=== PATIENT | female | born 1975 | race Caucasian/White ===

== ENCOUNTER 2016-08-04 18:59 | Emergency (ER) | payer OTHER ==
--- NOTE | 2016-08-04 20:37 | ED ORDER SUMMARY ---
..... Patient: DAVE BANUELOS OrderSheet [facility] VisitID: [id number] [address] [place] [address] 41y, F Registration Date/Time: 08/04/2016 ORDER SHEET Weight: 120.2 kg Allergies: Aspirin, NSAIDs, Ibuprofen GENERAL ORDERS: Chest 2V Urgent (19:28 08/04/2016 EKoroleva P.A.-C) (19:31 TBowen R.N.) Hand 3 or 4V Right Urgent (19:28 08/04/2016 EKoroleva P.A.-C) (19:31 TBowen R.N.) Splint (UE) (Right) (prince wrap to hand) (19:58 08/04/2016 EKoroleva P.A.-C) (20:30 CHategekimana) Vitals (20:25 08/04/2016 EKoroleva P.A.-C) (20:41 CHategekimana) MEDICATION ORDERS: DuoNeb Neb Tx 1 unit dose (NOW) (19:28 08/04/2016 EKoroleva P.A.-C) (19:58 TBowen R.N.) IV FLUIDS: ORDER SHEET NOTES: [Electronically signed by Candy Kebede R.N. (20:46 08/04/2016)] [Electronically signed by eJn Gunn P.A.-C (22:15 08/04/2016)] [Electronically locked/signed by Candy Kebede R.N. (20:46 08/04/2016)]
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
--- NOTE | 2016-08-04 20:37 | ED ORDER SUMMARY ---
..... Patient: DAVE BANUELOS OrderSheet [facility] VisitID: [id number] [address] [place] [address] 41y, F Registration Date/Time: 08/04/2016 ORDER SHEET Weight: 120.2 kg Allergies: Aspirin, NSAIDs, Ibuprofen GENERAL ORDERS: Chest 2V Urgent (19:28 08/04/2016 EKoroleva P.A.-C) (19:31 TBowen R.N.) Hand 3 or 4V Right Urgent (19:28 08/04/2016 EKoroleva P.A.-C) (19:31 TBowen R.N.) Splint (UE) (Right) (prince wrap to hand) (19:58 08/04/2016 EKoroleva P.A.-C) (20:30 CHategekimana) Vitals (20:25 08/04/2016 EKoroleva P.A.-C) (20:41 CHategekimana) MEDICATION ORDERS: DuoNeb Neb Tx 1 unit dose (NOW) (19:28 08/04/2016 EKoroleva P.A.-C) (19:58 TBowen R.N.) IV FLUIDS: ORDER SHEET NOTES: [Electronically signed by Candy Kebede R.N. (20:46 08/04/2016)] [Electronically signed by Jen Gunn P.A.-C (22:15 08/04/2016)] [Electronically locked/signed by Candy Kebede R.N. (20:46 08/04/2016)]
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
--- NOTE | 2016-08-04 21:14 | DIAGNOSTIC IMAGING REPORT ---
PROCEDURE: XR CHEST 2 VIEW INDICATION: FEVER TECHNIQUE: Two views. COMPARISON: None. FINDINGS: The cardiomediastinal contour and central vasculature are within normal limits. The lungs are clear without focal consolidation, pleural effusion, or pneumothorax. The visualized osseous structures are intact. Fusion plate in the anterior lower cervical spine. Calcific tendinosis in the left rotator cuff region. IMPRESSION: 1. No acute process in the chest. 2. Left shoulder calcific tendinosis.
--- NOTE | 2016-08-04 21:18 | DIAGNOSTIC IMAGING REPORT ---
PROCEDURE: XR HAND 3 OR 4 VIEWS - RIGHT INDICATION: TRAUMA/INJURY TECHNIQUE: Three views of the right hand. COMPARISON: None. FINDINGS: Normal mineralization. Trace cortical irregularity/periarticular erosive change along the medial aspect of the third distal interphalangeal joint with an adjacent rayray-like calcification. A subtle asymmetric joint space loss at the third DIP joint. Trace calcification at the radial scaphoid articulation. Normal osseous alignment. No radiodense foreign bodies. IMPRESSION: 1. No acute fractures visible. 2. Minimal erosive change and asymmetric joint space loss at the third DIP joint raising possibility of early arthritis or gout. Alternatively, this could be post-traumatic change, less likely. Correlate clinically.
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
--- NOTE | 2016-08-04 22:15 | ED MED RECONCILIATION SUMMARY ---
Patient: DAVE BANUELOS Medication Reconciliation Report [facility] VisitID: [id number] [address] [place] [address] 41y, F Registration Date/Time: 08/04/2016 Weight: 120.2 kg Height/Length: 63 in. BMI: 47.0 ALLERGIES: Aspirin, Ibuprofen, NSAIDs The patient's Home Medications are listed below: THE FOLLOWING MEDICATIONS NEED TO BE RECONCILED: Baclofen Oral Benadryl Oral Effexor XR Oral Flovent HFA Inhalation Gabapentin Oral Nasonex Nasal Rizatriptan Benzoate Oral Topiramate Oral Ventolin HFA Inhalation ZyrTEC Allergy Oral The source(s) of the original Home Medication information: Not obtained. The following Medications were given to the patient in the Emergency Department: Duoneb [Neb Tx] Neb TX 1 unit dose, administered: 08/04/2016 7:58:00 PM The following Medications were prescribed to the patient: Acetaminophen (available over the counter): take according to label instructions. -- Jen Gunn P.A.-C
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
--- NOTE | 2016-08-04 22:15 | ED MAR SUMMARY ---
..... Medication Administration Record [facility] [address] [place] [address] Patient: DAVE BANUELOS Visit ID: [id number] 41y, F Weight: 120.2 kg Height/Length: 63 in BMI: 47 ALLERGIES: Ibuprofen, NSAIDs, Aspirin Given 19:58 08/04/2016 Meagan Melvin, Stop 20:19 08/04/2016 Meagan Melvin Medication Administered: DUONEB [NEB TX] (IPRATROPIUM-ALBUTEROL), Dose: 1 unit dose Neb TX. Medication Ordered: DuoNeb Neb Tx 1 unit dose (NOW).
--- NOTE | 2016-08-04 22:15 | ED MED RECONCILIATION SUMMARY ---
Patient: DAVE BANUELOS Medication Reconciliation Report [facility] VisitID: [id number] [address] [place] [address] 41y, F Registration Date/Time: 08/04/2016 Weight: 120.2 kg Height/Length: 63 in. BMI: 47.0 ALLERGIES: Aspirin, Ibuprofen, NSAIDs The patient's Home Medications are listed below: THE FOLLOWING MEDICATIONS NEED TO BE RECONCILED: Baclofen Oral Benadryl Oral Effexor XR Oral Flovent HFA Inhalation Gabapentin Oral Nasonex Nasal Rizatriptan Benzoate Oral Topiramate Oral Ventolin HFA Inhalation ZyrTEC Allergy Oral The source(s) of the original Home Medication information: Not obtained. The following Medications were given to the patient in the Emergency Department: Duoneb [Neb Tx] Neb TX 1 unit dose, administered: 08/04/2016 7:58:00 PM The following Medications were prescribed to the patient: Acetaminophen (available over the counter): take according to label instructions. -- Jen Gunn P.A.-C
--- NOTE | 2016-08-04 22:15 | ED MAR SUMMARY ---
..... Medication Administration Record [facility] [address] [place] [address] Patient: DAVE BANUELOS Visit ID: [id number] 41y, F Weight: 120.2 kg Height/Length: 63 in BMI: 47 ALLERGIES: Ibuprofen, NSAIDs, Aspirin Given 19:58 08/04/2016 Meagan Melvin, Stop 20:19 08/04/2016 Meagan Melvin Medication Administered: DUONEB [NEB TX] (IPRATROPIUM-ALBUTEROL), Dose: 1 unit dose Neb TX. Medication Ordered: DuoNeb Neb Tx 1 unit dose (NOW).
== END 2016-08-04 20:40 | disposition home or self-care (01) ==
LOC: ED SRH 18:59
DX: S60.221A Contusion of right hand, initial encounter (principal); Y04.8XXA Assault by other bodily force, initial encounter; Y93.89 Activity, other specified; Y92.9 Unspecified place or not applicable; Y99.9 Unspecified external cause status; J45.31 Mild persistent asthma with (acute) exacerbation; E11.9 Type 2 diabetes mellitus without complications; Z88.8 Allergy status to other drugs, medicaments and biological substances

== ENCOUNTER 2016-08-07 18:50 | Emergency (ER) | payer OTHER ==
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
--- NOTE | 2016-08-07 22:28 | ED CLINICAL REPORT ---
Clinical Report - Physicians/Mid Levels [facility] [address] [place] [address] 08/07/2016 18:51 Patient: DAVE BANUELOS Time Seen: 1926. Arrived- By private vehicle. Historian- patient. HISTORY OF PRESENT ILLNESS Chief Complaint: CHEST PAIN. At its maximum, severity described as moderate. When seen in the E.D., severity described as moderate. Modifying factors- worsened by cough. Not relieved by anything. 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 It was abrupt in onset and has been intermittent but is not gone now. Onset during rest. It is described as sharp and it is described as located in the left chest area. No radiation. No nausea, vomiting, difficulty breathing or diaphoresis. (no recent surgery, leg swelling, coughing up blood, recent trauma). No additional chest pain. Similar symptoms previously: None. Recent medical care: The patient was seen recently in a clinic (reports cough and negative chest xray at an outpatient clinic.). REVIEW OF SYSTEMS The patient has had fever (now resolved). She has had chills. No pedal edema, calf pain or skin rash. All systems otherwise negative, except as recorded above. PAST HISTORY See nurses notes. Denies the following risk factors for DVT/PE - history of DVT and pulmonary embolism, recent surgery, recent VT and congestive heart failure. Denies the following risk factors for DVT/PE - cancer, clotting disorder, estrogens, immobility and advanced in age. Denies the following risk factors for DVT/PE - vena cava filter. SOCIAL HISTORY Smoker- current status unknown. No alcohol use or drug use. No recent travel. Is a local resident. FAMILY HISTORY Negative. ADDITIONAL NOTES The nursing notes have been reviewed. PHYSICAL EXAM Vital Signs: 08/07/2016 19:00 BP: 152/82. HR: 78. RR: 18. O2 saturation: 98%. Temp: 98.1 F. Pain level now: 7/10. Blood pressure normal. Oxygen saturation normal. Appearance: Alert. Oriented X3. No acute distress. Eyes: Pupils equal, round and reactive to light. Eyes normal inspection. ENT: Ears normal. Nose normal. Pharynx normal. Neck: Normal inspection. Neck supple. CVS: Normal heart rate and rhythm. Heart sounds normal. Pulses normal. Respiratory: No respiratory distress. Expiratory mild bilateral wheezes present. Breath sounds normal. Chest nontender. Abdomen: Soft and nontender. Bowel sounds normal. No mass. Skin: Skin warm and dry. Normal skin color. No rash. Normal skin turgor. Extremities: Extremities exhibit normal ROM. No lower extremity edema. Neuro: Oriented X 3. No motor deficit. No sensory deficit. LABS, X-RAYS, AND EKG EKG: No acute process. No acute ischemia. Normal EKG. Normal sinus rhythm. Rate: 66. Normal P waves. Normal MAKAYLA. Normal QRS complex. Normal axis. Normal ST and T waves, QT and QTc. The study has been interpreted contemporaneously. The study has been independently viewed by me. The EKG appears to be a good tracing. I agree with and confirm the computer reading of the EKG. Chest X-ray: No acute disease. Normal lung markings present. Laboratory Tests: UA-Culture if indicated: (ROHAN: 08/07/2016 20:45) ( MsgRcvd 08/07/2016 21:20) Final results Test Result Flag Units (Reference) URINE COLOR YELLOW URINE APPEARANCE CLOUDY URINE GLUCOSE NEGATIVE (NEGATIVE) URINE BILIRUBIN NEGATIVE (NEGATIVE) URINE KETONE NEGATIVE (NEGATIVE) URINE SPECIFIC GRAVITY 1.020 (1.010-1.030) URINE PH 8.0 (5.0-8.0) URINE PROTEIN NEGATIVE (NEGATIVE) URINE UROBILINOGEN 1.0 EU/dL (0.2-1.0) URINE NITRITE NEGATIVE (NEGATIVE) URINE BLOOD NEGATIVE (NEGATIVE) URINE LEUK ESTERASE NEGATIVE (NEGATIVE) URINE RBC NONE SEEN rbc/hpf (0-1) URINE WBC NONE SEEN wbc/hpf (0-1) URINE EPITHELIAL CELLS 0-1 EPI/hpf (0-5) 4+ AMORPHOUS URINE BACTERIA FEW (1+) (NONE SEEN) URINE COMMENT CULT NOT INDICATED URINE CULTURES ARE SET-UP BASED ON THE FOLLOWING CRITERIA:POSITIVE NITRITEPOSITIVE LEUKOCYTE ESTERASEGREATER THAN 10 WHITE BLOOD CELLSMODERATE (2+) OR GREATER BACTERIA Urine: (ROHAN: 08/07/2016 20:45) ( [facility] 08/07/2016 21:20) Final results Test Result Flag Units (Reference) URINE NEGATIVE CBC w Diff: (ROHAN: 08/07/2016 19:05) ( [facility] 08/07/2016 19:30) Final results Test Result Flag Units (Reference) WHITE BLOOD COUNT 6.8 K/uL (4.5-11.5) RED BLOOD COUNT 4.42 M/uL (4.00-5.20) HEMOGLOBIN 14.0 gm/dL (12.0-16.0) HEMATOCRIT 41.9 % (36.0-46.0) MEAN CELL VOLUME 95 fL (80-100) MEAN CORPUSCULAR HGB 32 pg (26-34) MEAN CORPUSCULAR HGB CONC 33 g/dL (31-37) RED CELL DISTRIBUTION WIDTH 13.4 % (11.6-14.8) PLATELET COUNT 250 K/uL (150-400) NEUTROPHIL % 51.6 % (50-75) LYMPH % 35.8 % (25-40) MONO % 7.3 % (3-14) EOSINOPHIL % 4.7 H % (0-4) BASOPHIL % 0.6 % (0-2) Troponin-I: (ROHAN: 08/07/2016 21:20) ( [facility] 08/07/2016 21:47) Final results Test Result Flag Units (Reference) TROPONIN I <0.05 L ng/mL (0.00-1.5) TROPONIN REFERENCE RANGE:<0.1 NEGATIVE0.1-1.5 INDETERMINANT>1.5 POSITIVE Urine Drug Screen: (ROHAN: 08/07/2016 20:45) ( [facility] 08/07/2016 21:24) Final results Test Result Flag Units (Reference) AMPHETAMINE/METHAMPHETAMINE NEGATIVE (NEGATIVE) BARBITURATE NEGATIVE (NEGATIVE) BENZODIAZEPINE NEGATIVE (NEGATIVE) CANNABINOID NEGATIVE (NEGATIVE) COCAINE NEGATIVE (NEGATIVE) ECSTASY NEGATIVE (NEGATIVE) METHADONE NEGATIVE (NEGATIVE) OPIATE NEGATIVE (NEGATIVE) The urine drug screen is a qualitative screening test fordrug overdose and abuse. All screen results should beconsidered as presumptive.Drugs screened for are as follows:BenzodiazepinesCocaineAmphetamines/MetamphetaminesTHC (Tetrahydrocannabinol)OpiatesBarbituratesEcstasyMethadonePositive results are unconfirmed. For confirmation, notifythe lab for the specimen to be sent to the reference lab.All confirmations must be performed by a differentmethodology.The ingestion of natural herbal and plant productscontaining Ephedra/Ephedra metabolites can produce in urineone or more substances capable of cross reacting withamphetamine/methamphetamine immunoassays. These testsprovide a preliminary result only. A more specificalternative chemical method must be used to obtain aconfirmed analytical result. CHEM 13 PANEL: (ROHAN: 08/07/2016 19:05) ( MsgRcvd 08/07/2016 19:44) Final results Test Result Flag Units (Reference) GLUCOSE 136 H mg/dL (70-110) BUN 13 mg/dL (7-18) CREATININE 0.7 mg/dL (0.6-1.3) Estimated GFR >60 mL/min Estimated GFR- >60 mL/min Note: Persistent reduction over 3 months in eGFR<60 mL/min/1.73 m2 defines CKD. Patients with eGFR values>=60 mL/min/1.73 m2 may also have CKD if evidence ofpersistent proteinuria. Additional information may be foundat www.kidney.org. SODIUM 143 mmol/L (136-145) POTASSIUM 3.9 mmol/L (3.5-5.1) CHLORIDE 109 H mmol/L (98-107) CARBON DIOXIDE 24 mmol/L (21-32) CALCIUM 8.7 mg/dL (8.5-10.1) TOTAL PROTEIN 7.1 g/dL (6.4-8.2) ALBUMIN 3.3 g/dL (3.3-5.0) BILIRUBIN, TOTAL 0.2 mg/dL (0.0-1.0) ALKALINE PHOSPHATASE 63 U/L (46-116) AST (SGOT) 16 U/L (15-37) ALT (SGPT) 19 U/L (12-78) MAGNESIUM 2.1 mg/dL (1.8-2.4) CPK 63 U/L (24-260) TROPONIN I <0.05 ng/mL (0.00-1.5) TROPONIN REFERENCE RANGE:<0.1 NEGATIVE0.1-1.5 INDETERMINANT>1.5 POSITIVE . Pulse Oximetry: 08/07/2016 19:00 O2 saturation: 98%. (FIO2 - room air). Interpretation: normal. PROGRESS AND PROCEDURES Course of Care: I assumed care of this pt from Dr. Jacobson, pending repeat troponin. Her initial troponin was negative, as was the repeat. I felt pt was stable for d/c home. No emergent condition identified. Patient counseled in person regarding the patient's stable condition, test results, diagnosis and need for follow-up. Concerns were addressed. Old medical records reviewed. Disposition: Discharged. Condition: stable. CLINICAL IMPRESSION Chest pain .12 lead EKG performed. No precordial pain. INSTRUCTIONS Warnings: GENERAL WARNINGS: Return or contact your physician immediately if your condition worsens or changes unexpectedly, if not improving as expected, or if other problems arise. Your Current Medications: CONTINUE TAKING THE FOLLOWING MEDICATIONS: Baclofen Oral. Benadryl Oral. Effexor XR Oral. Flovent HFA Inhalation. Gabapentin Oral. Nasonex Nasal. Rizatriptan Benzoate Oral. Topiramate Oral. Ventolin HFA Inhalation. ZyrTEC Allergy Oral. Follow-up: Follow up with your doctor. Call for the next available appointment. Reason for referral: Follow up ER visit. Understanding of the discharge instructions verbalized by patient. (Electronically signed by Noelle Branham MD 08/08/2016 4:18)
--- NOTE | 2016-08-07 22:28 | ED CLINICAL REPORT ---
Clinical Report - Physicians/Mid Levels [facility] [address] [place] [address] 08/07/2016 18:51 Patient: DAVE BANUELOS Time Seen: 1926. Arrived- By private vehicle. Historian- patient. HISTORY OF PRESENT ILLNESS Chief Complaint: CHEST PAIN. At its maximum, severity described as moderate. When seen in the E.D., severity described as moderate. Modifying factors- worsened by cough. Not relieved by anything. 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 It was abrupt in onset and has been intermittent but is not gone now. Onset during rest. It is described as sharp and it is described as located in the left chest area. No radiation. No nausea, vomiting, difficulty breathing or diaphoresis. (no recent surgery, leg swelling, coughing up blood, recent trauma). No additional chest pain. Similar symptoms previously: None. Recent medical care: The patient was seen recently in a clinic (reports cough and negative chest xray at an outpatient clinic.). REVIEW OF SYSTEMS The patient has had fever (now resolved). She has had chills. No pedal edema, calf pain or skin rash. All systems otherwise negative, except as recorded above. PAST HISTORY See nurses notes. Denies the following risk factors for DVT/PE - history of DVT and pulmonary embolism, recent surgery, recent MT and congestive heart failure. Denies the following risk factors for DVT/PE - cancer, clotting disorder, estrogens, immobility and advanced in age. Denies the following risk factors for DVT/PE - vena cava filter. SOCIAL HISTORY Smoker- current status unknown. No alcohol use or drug use. No recent travel. Is a local resident. FAMILY HISTORY Negative. ADDITIONAL NOTES The nursing notes have been reviewed. PHYSICAL EXAM Vital Signs: 08/07/2016 19:00 BP: 152/82. HR: 78. RR: 18. O2 saturation: 98%. Temp: 98.1 F. Pain level now: 7/10. Blood pressure normal. Oxygen saturation normal. Appearance: Alert. Oriented X3. No acute distress. Eyes: Pupils equal, round and reactive to light. Eyes normal inspection. ENT: Ears normal. Nose normal. Pharynx normal. Neck: Normal inspection. Neck supple. CVS: Normal heart rate and rhythm. Heart sounds normal. Pulses normal. Respiratory: No respiratory distress. Expiratory mild bilateral wheezes present. Breath sounds normal. Chest nontender. Abdomen: Soft and nontender. Bowel sounds normal. No mass. Skin: Skin warm and dry. Normal skin color. No rash. Normal skin turgor. Extremities: Extremities exhibit normal ROM. No lower extremity edema. Neuro: Oriented X 3. No motor deficit. No sensory deficit. LABS, X-RAYS, AND EKG EKG: No acute process. No acute ischemia. Normal EKG. Normal sinus rhythm. Rate: 66. Normal P waves. Normal MAKAYLA. Normal QRS complex. Normal axis. Normal ST and T waves, QT and QTc. The study has been interpreted contemporaneously. The study has been independently viewed by me. The EKG appears to be a good tracing. I agree with and confirm the computer reading of the EKG. Chest X-ray: No acute disease. Normal lung markings present. Laboratory Tests: UA-Culture if indicated: (ROHAN: 08/07/2016 20:45) ( MsgRcvd 08/07/2016 21:20) Final results Test Result Flag Units (Reference) URINE COLOR YELLOW URINE APPEARANCE CLOUDY URINE GLUCOSE NEGATIVE (NEGATIVE) URINE BILIRUBIN NEGATIVE (NEGATIVE) URINE KETONE NEGATIVE (NEGATIVE) URINE SPECIFIC GRAVITY 1.020 (1.010-1.030) URINE PH 8.0 (5.0-8.0) URINE PROTEIN NEGATIVE (NEGATIVE) URINE UROBILINOGEN 1.0 EU/dL (0.2-1.0) URINE NITRITE NEGATIVE (NEGATIVE) URINE BLOOD NEGATIVE (NEGATIVE) URINE LEUK ESTERASE NEGATIVE (NEGATIVE) URINE RBC NONE SEEN rbc/hpf (0-1) URINE WBC NONE SEEN wbc/hpf (0-1) URINE EPITHELIAL CELLS 0-1 EPI/hpf (0-5) 4+ AMORPHOUS URINE BACTERIA FEW (1+) (NONE SEEN) URINE COMMENT CULT NOT INDICATED URINE CULTURES ARE SET-UP BASED ON THE FOLLOWING CRITERIA:POSITIVE NITRITEPOSITIVE LEUKOCYTE ESTERASEGREATER THAN 10 WHITE BLOOD CELLSMODERATE (2+) OR GREATER BACTERIA Urine: (ROHAN: 08/07/2016 20:45) ( [facility] 08/07/2016 21:20) Final results Test Result Flag Units (Reference) URINE NEGATIVE CBC w Diff: (ROHAN: 08/07/2016 19:05) ( [facility] 08/07/2016 19:30) Final results Test Result Flag Units (Reference) WHITE BLOOD COUNT 6.8 K/uL (4.5-11.5) RED BLOOD COUNT 4.42 M/uL (4.00-5.20) HEMOGLOBIN 14.0 gm/dL (12.0-16.0) HEMATOCRIT 41.9 % (36.0-46.0) MEAN CELL VOLUME 95 fL (80-100) MEAN CORPUSCULAR HGB 32 pg (26-34) MEAN CORPUSCULAR HGB CONC 33 g/dL (31-37) RED CELL DISTRIBUTION WIDTH 13.4 % (11.6-14.8) PLATELET COUNT 250 K/uL (150-400) NEUTROPHIL % 51.6 % (50-75) LYMPH % 35.8 % (25-40) MONO % 7.3 % (3-14) EOSINOPHIL % 4.7 H % (0-4) BASOPHIL % 0.6 % (0-2) Troponin-I: (ROHAN: 08/07/2016 21:20) ( [facility] 08/07/2016 21:47) Final results Test Result Flag Units (Reference) TROPONIN I <0.05 L ng/mL (0.00-1.5) TROPONIN REFERENCE RANGE:<0.1 NEGATIVE0.1-1.5 INDETERMINANT>1.5 POSITIVE Urine Drug Screen: (ROHAN: 08/07/2016 20:45) ( [facility] 08/07/2016 21:24) Final results Test Result Flag Units (Reference) AMPHETAMINE/METHAMPHETAMINE NEGATIVE (NEGATIVE) BARBITURATE NEGATIVE (NEGATIVE) BENZODIAZEPINE NEGATIVE (NEGATIVE) CANNABINOID NEGATIVE (NEGATIVE) COCAINE NEGATIVE (NEGATIVE) ECSTASY NEGATIVE (NEGATIVE) METHADONE NEGATIVE (NEGATIVE) OPIATE NEGATIVE (NEGATIVE) The urine drug screen is a qualitative screening test fordrug overdose and abuse. All screen results should beconsidered as presumptive.Drugs screened for are as follows:BenzodiazepinesCocaineAmphetamines/MetamphetaminesTHC (Tetrahydrocannabinol)OpiatesBarbituratesEcstasyMethadonePositive results are unconfirmed. For confirmation, notifythe lab for the specimen to be sent to the reference lab.All confirmations must be performed by a differentmethodology.The ingestion of natural herbal and plant productscontaining Ephedra/Ephedra metabolites can produce in urineone or more substances capable of cross reacting withamphetamine/methamphetamine immunoassays. These testsprovide a preliminary result only. A more specificalternative chemical method must be used to obtain aconfirmed analytical result. CHEM 13 PANEL: (ROHAN: 08/07/2016 19:05) ( MsgRcvd 08/07/2016 19:44) Final results Test Result Flag Units (Reference) GLUCOSE 136 H mg/dL (70-110) BUN 13 mg/dL (7-18) CREATININE 0.7 mg/dL (0.6-1.3) Estimated GFR >60 mL/min Estimated GFR- >60 mL/min Note: Persistent reduction over 3 months in eGFR<60 mL/min/1.73 m2 defines CKD. Patients with eGFR values>=60 mL/min/1.73 m2 may also have CKD if evidence ofpersistent proteinuria. Additional information may be foundat www.kidney.org. SODIUM 143 mmol/L (136-145) POTASSIUM 3.9 mmol/L (3.5-5.1) CHLORIDE 109 H mmol/L (98-107) CARBON DIOXIDE 24 mmol/L (21-32) CALCIUM 8.7 mg/dL (8.5-10.1) TOTAL PROTEIN 7.1 g/dL (6.4-8.2) ALBUMIN 3.3 g/dL (3.3-5.0) BILIRUBIN, TOTAL 0.2 mg/dL (0.0-1.0) ALKALINE PHOSPHATASE 63 U/L (46-116) AST (SGOT) 16 U/L (15-37) ALT (SGPT) 19 U/L (12-78) MAGNESIUM 2.1 mg/dL (1.8-2.4) CPK 63 U/L (24-260) TROPONIN I <0.05 ng/mL (0.00-1.5) TROPONIN REFERENCE RANGE:<0.1 NEGATIVE0.1-1.5 INDETERMINANT>1.5 POSITIVE . Pulse Oximetry: 08/07/2016 19:00 O2 saturation: 98%. (FIO2 - room air). Interpretation: normal. PROGRESS AND PROCEDURES Course of Care: I assumed care of this pt from Dr. Jacobson, pending repeat troponin. Her initial troponin was negative, as was the repeat. I felt pt was stable for d/c home. No emergent condition identified. Patient counseled in person regarding the patient's stable condition, test results, diagnosis and need for follow-up. Concerns were addressed. Old medical records reviewed. Disposition: Discharged. Condition: stable. CLINICAL IMPRESSION Chest pain .12 lead EKG performed. No precordial pain. INSTRUCTIONS Warnings: GENERAL WARNINGS: Return or contact your physician immediately if your condition worsens or changes unexpectedly, if not improving as expected, or if other problems arise. Your Current Medications: CONTINUE TAKING THE FOLLOWING MEDICATIONS: Baclofen Oral. Benadryl Oral. Effexor XR Oral. Flovent HFA Inhalation. Gabapentin Oral. Nasonex Nasal. Rizatriptan Benzoate Oral. Topiramate Oral. Ventolin HFA Inhalation. ZyrTEC Allergy Oral. Follow-up: Follow up with your doctor. Call for the next available appointment. Reason for referral: Follow up ER visit. Understanding of the discharge instructions verbalized by patient. (Electronically signed by Noelle Branham MD 08/08/2016 4:18)
--- NOTE | 2016-08-07 22:28 | ED ORDER SUMMARY ---
..... 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 verbal order read back to Andrew Yee) (19:14 DDavis R.N.) Pulse oximeter (19:11 08/07/2016 Hue R.N. verbal order read back to Andrew Yee) (19:14 DDavis R.N.) EKG - ER Stat (19:08/07/2016 Hue Collins.N. verbal order read back to Andrew Yee) (Ack 19:13 SBaldwin) (19:13 SBaldwin) Cardiac Panel Stat (19:18 08/07/2016 DDavis R.N. per protocol) (19:18 DDavis R.N.) Chest 2V Urgent (20:25 08/07/2016 Andrew Yee) (Ack 20:27 SBaldwin) (20:38 SBaldwin) UA-Culture if indicated Urgent (20:25 08/07/2016 Andrew Yee) (Ack 20:27 SBaldwin) (20:53 DDavis R.N.) Urine Drug Screen Urgent (20:25 08/07/2016 Andrew Yee) (Ack 20:27 SBaldwin) (20:53 DDavis R.N.) Urine Urgent (20:25 08/07/2016 Andrew Yee) (Ack 20:27 SBaldwin) (20:53 DDavis R.N.) Troponin-I (redraw 2 hours after first trop drawn) Urgent (20:33 08/07/2016 Andrew Yee) (Ack 20:36 SBgloria) (22:47 DDavis R.N.) MEDICATION ORDERS: DuoNeb Neb Tx 1 unit dose (NOW) (19:35 08/07/2016 Andrew Yee) (Ack 19:46 DDavis R.N.) IV FLUIDS: IV Saline Lock (19:11 08/07/2016 Hue Rhodes verbal order read back to Andrew Yee) (19:15 DDavis R.N.) Solu-MEDROL IV 125 mg (NOW) (19:35 08/07/2016 Andrew Yee) (19:45 DDavis R.N.) ORDER SHEET NOTES: [Electronically signed by Noelle Branham MD (04:18 08/08/2016)] [Electronically signed by Yuriy Flower R.N. (03:01 08/09/2016)] [Electronically locked/signed by Yuriy Flower R.N. (03:01 08/09/2016)]
--- NOTE | 2016-08-07 22:28 | ED ORDER SUMMARY ---
..... Patient: DAVE BANUELOS OrderSheet 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 verbal order read back to Andrew Yee) (19:14 DDavis R.N.) Pulse oximeter (19:11 08/07/2016 Hue R.N. verbal order read back to Andrew Yee) (19:14 DDavis R.N.) EKG - ER Stat (19:08/07/2016 Hue Collins.N. verbal order read back to nAdrew Yee) (Ack 19:13 SBaldwin) (19:13 SBaldwin) Cardiac Panel Stat (19:18 08/07/2016 DDavis R.N. per protocol) (19:18 DDavis R.N.) Chest 2V Urgent (20:25 08/07/2016 Andrew Yee) (Ack 20:27 SBaldwin) (20:38 SBaldwin) UA-Culture if indicated Urgent (20:25 08/07/2016 Andrew Yee) (Ack 20:27 SBaldwin) (20:53 DDavis R.N.) Urine Drug Screen Urgent (20:25 08/07/2016 Andrew Yee) (Ack 20:27 SBaldwin) (20:53 DDavis R.N.) Urine Urgent (20:25 08/07/2016 Andrew Yee) (Ack 20:27 SBaldwin) (20:53 DDavis R.N.) Troponin-I (redraw 2 hours after first trop drawn) Urgent (20:33 08/07/2016 Andrew Yee) (Ack 20:36 SBgloria) (22:47 DDavis R.N.) MEDICATION ORDERS: DuoNeb Neb Tx 1 unit dose (NOW) (19:35 08/07/2016 Andrew Yee) (Ack 19:46 DDavis R.N.) IV FLUIDS: IV Saline Lock (19:11 08/07/2016 Hue Rhodes verbal order read back to Andrew Yee) (19:15 DDavis R.N.) Solu-MEDROL IV 125 mg (NOW) (19:35 08/07/2016 Andrew Yee) (19:45 DDavis R.N.) ORDER SHEET NOTES: [Electronically signed by Noelle Branham MD (04:18 08/08/2016)] [Electronically signed by Yuriy Flower R.N. (03:01 08/09/2016)] [Electronically locked/signed by Yuriy Flower R.N. (03:01 08/09/2016)]
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
--- NOTE | 2016-08-09 03:01 | ED MAR SUMMARY ---
..... Medication Administration Record [facility] [address] [place] [address] Patient: DAVE BANUELOS Visit ID: [id number] 41y, F Weight: 120.2 kg Height/Length: 63 in BMI: 47 ALLERGIES: Aspirin, Ibuprofen, NSAIDs, Formaldehyde Given 19:43 08/07/2016 Yuriy Flower R.N. Medication Administered: SOLU-MEDROL [IVP] (METHYLPREDNISOLONE SODIUM SUCC), Dose: 125 mg IVP over 2 minute(s), Site: #1 right AC. Medication Ordered: Solu-MEDROL IV 125 mg (NOW).
--- NOTE | 2016-08-09 03:01 | ED MED RECONCILIATION SUMMARY ---
Patient: DAVE BANUELOS Medication Reconciliation Report [facility] VisitID: [id number] [address] [place] [address] 41y, F Registration Date/Time: 08/07/2016 Weight: 120.2 kg Height/Length: 63 in. BMI: 47.0 ALLERGIES: Aspirin, Formaldehyde, Ibuprofen, NSAIDs The patient's Home Medications are listed below: CONTINUE TAKING THE FOLLOWING MEDICATIONS: Baclofen Oral Benadryl Oral Effexor XR Oral Flovent HFA Inhalation Gabapentin Oral Nasonex Nasal Rizatriptan Benzoate Oral Topiramate Oral Ventolin HFA Inhalation ZyrTEC Allergy Oral The source(s) of the original Home Medication information: Not obtained. The following Medications were given to the patient in the Emergency Department: SOLU-MEDROL [IVP] IVP 125 mg, administered: 08/07/2016 7:43:00 PM The following Medications were prescribed to the patient: None.
--- NOTE | 2016-08-09 03:01 | ED DISCHARGE INSTRUCTIONS ---
Patient: DAVE BANUELOS General Instructions [facility] VisitID: [id number] [place] [address] 41y, F Registration Date/Time: 08/07/2016 Chest pain .12 lead EKG performed. No precordial pain. INSTRUCTIONS Warnings: GENERAL WARNINGS: Return or contact your physician immediately if your condition worsens or changes unexpectedly, if not improving as expected, or if other problems arise. Your Current Medications: CONTINUE TAKING THE FOLLOWING MEDICATIONS: Baclofen Oral. Benadryl Oral. Effexor XR Oral. Flovent HFA Inhalation. Gabapentin Oral. Nasonex Nasal. Rizatriptan Benzoate Oral. Topiramate Oral. Ventolin HFA Inhalation. ZyrTEC Allergy Oral. Follow-up: Follow up with your doctor. Call for the next available appointment. Reason for referral: Follow up ER visit. Understanding of the discharge instructions verbalized by patient. ADDITIONAL INFORMATION Chest Pain, Uncertain Cause Chest pain can happen for a number of reasons. Sometimes the cause can not be determined. If yourcondition does not seem serious, and your pain does not appear to be coming from your heart, your doctor may recommend watching it closely. Sometimes the signs of a serious problem take more time to appear. Therefore, watch for the warning signs listed below. Home care After your visit, follow these recommendations: Rest today and avoid strenuous activity. Take any prescribed medicine as directed. Follow-up care Follow up with your doctor or this facility as instructed or if you do not start to feel better within 24 hours. Call 911 Get immediate medical attention if any of the following occur: A change in the type of pain: if it feels different, becomes more severe, lasts longer, or begins to spread into your shoulder, arm, neck, jaw or back Shortness of breath or increased pain with breathing Weakness, dizziness, or fainting Rapid heart beat Get prompt medical attention Call your doctor right away if any of the following occur: Cough with dark colored sputum (phlegm) or blood Fever of 100.4F(38C) or higher, or as directed by your health care provider Swelling, pain or redness in one leg You have been given the following additional information: Chest Pain, Uncertain Cause (Electronically signed by Noelle Branham MD 08/08/2016 4:18)
--- NOTE | 2016-08-09 03:01 | ED MAR SUMMARY ---
..... Medication Administration Record [facility] [address] [place] [address] Patient: DAVE BANUELOS Visit ID: [id number] 41y, F Weight: 120.2 kg Height/Length: 63 in BMI: 47 ALLERGIES: Aspirin, Ibuprofen, NSAIDs, Formaldehyde Given 19:43 08/07/2016 Yuriy Flower R.N. Medication Administered: SOLU-MEDROL [IVP] (METHYLPREDNISOLONE SODIUM SUCC), Dose: 125 mg IVP over 2 minute(s), Site: #1 right AC. Medication Ordered: Solu-MEDROL IV 125 mg (NOW).
--- NOTE | 2016-08-09 03:01 | ED MED RECONCILIATION SUMMARY ---
Patient: DAVE BANUELOS Medication Reconciliation Report [facility] VisitID: [id number] [address] [place] [address] 41y, F Registration Date/Time: 08/07/2016 Weight: 120.2 kg Height/Length: 63 in. BMI: 47.0 ALLERGIES: Aspirin, Formaldehyde, Ibuprofen, NSAIDs The patient's Home Medications are listed below: CONTINUE TAKING THE FOLLOWING MEDICATIONS: Baclofen Oral Benadryl Oral Effexor XR Oral Flovent HFA Inhalation Gabapentin Oral Nasonex Nasal Rizatriptan Benzoate Oral Topiramate Oral Ventolin HFA Inhalation ZyrTEC Allergy Oral The source(s) of the original Home Medication information: Not obtained. The following Medications were given to the patient in the Emergency Department: SOLU-MEDROL [IVP] IVP 125 mg, administered: 08/07/2016 7:43:00 PM The following Medications were prescribed to the patient: None.
== END 2016-08-07 22:57 | disposition home or self-care (01) ==
LOC: ED SRH 18:50
DX: R07.89 Other chest pain (principal); Z79.899 Other long term (current) drug therapy; Z79.51 Long term (current) use of inhaled steroids
CPT/HCPCS: 90004; 90074; 90100; 90616; 92610; 92720; 92760; 92761; 92762; 92763; 92764; 92765; 92766; 92767; 93070; 95059

== ENCOUNTER 2016-08-08 14:29 | Outpatient (CLI) | payer OTHER ==
--- NOTE | 2016-08-08 15:29 | DIAGNOSTIC IMAGING REPORT ---
PROCEDURE: XR CERVICAL SPINE 4 OR 5 VIEW INDICATION: NECK PAIN ON RIGHT SIDE TECHNIQUE: Five views. COMPARISON: None. FINDINGS: Status post fusion and artificial disc at C 5/6. There is bilateral uncinate process hypertrophy and a posterior osteophytic ridge. IMPRESSION: 1. Spondylosis C5-6 status post fusion and artificial disc replacement.
== END 2016-08-08 23:00 ==
LOC: LAB SRH 14:29
DX: M47.812 Spondylosis without myelopathy or radiculopathy, cervical region (principal); Z98.1 Arthrodesis status

== ENCOUNTER 2016-11-29 17:34 | Emergency (ER) | payer OTHER ==
--- NOTE | 2016-11-29 19:18 | DIAGNOSTIC IMAGING REPORT ---
PROCEDURE: XR FINGER - RIGHT (fifth finger) INDICATION: TRAUMA/INJURY TECHNIQUE: Three views. COMPARISON: None. FINDINGS: Osseous structures and joint spaces are normal. IMPRESSION: 1. Normal right fifth finger.
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
--- NOTE | 2016-11-29 19:19 | ED ORDER SUMMARY ---
..... Patient: DAVE BANUELOS OrderSheet [facility] VisitID: [id number] [address] [place] [address] 41y, F Registration Date/Time: 11/29/2016 ORDER SHEET Weight: 123.8 kg (stated) Allergies: Aspirin, Formaldehyde, Ibuprofen, NSAIDs GENERAL ORDERS: Finger Right (5) Urgent (17:50 11/29/2016 Yoly A.R.N.P.) (Ack 17:51 PWeiler ER Tech1) (19:15 RFay) MEDICATION ORDERS: IV FLUIDS: ORDER SHEET NOTES: [Electronically signed by Devin Gutierrez R.N. (19:47 11/29/2016)] [Electronically signed by Ebony CauseyR.N.PBryan (22:59 11/29/2016)] [Electronically locked/signed by Devin Gutierrez R.N. (19:47 11/29/2016)]
--- NOTE | 2016-11-29 19:19 | ED ORDER SUMMARY ---
..... Patient: DAVE BANUELOS OrderSheet [facility] VisitID: [id number] [address] [place] [address] 41y, F Registration Date/Time: 11/29/2016 ORDER SHEET Weight: 123.8 kg (stated) Allergies: Aspirin, Formaldehyde, Ibuprofen, NSAIDs GENERAL ORDERS: Finger Right (5) Urgent (17:50 11/29/2016 Yoly A.R.N.P.) (Ack 17:51 PWeiler ER Tech1) (19:15 RFay) MEDICATION ORDERS: IV FLUIDS: ORDER SHEET NOTES: [Electronically signed by Devin Gutierrez R.N. (19:47 11/29/2016)] [Electronically signed by Ebony CauseyR.N.PBryan (22:59 11/29/2016)] [Electronically locked/signed by Devin Gutierrez R.N. (19:47 11/29/2016)]
--- NOTE | 2016-11-29 23:00 | ED MED RECONCILIATION SUMMARY ---
Patient: DAVE BANUELOS Medication Reconciliation Report [facility] VisitID: [id number] [address] [place] [address] 41y, F Registration Date/Time: 11/29/2016 Weight: 123.8 kg Height/Length: 63 in. BMI: 48.4 ALLERGIES: Aspirin, Formaldehyde, Ibuprofen, NSAIDs The patient's Home Medications are listed below: THE FOLLOWING MEDICATIONS NEED TO BE RECONCILED: Baclofen Oral Benadryl Oral Effexor XR Oral Flovent HFA Inhalation Gabapentin Oral Nasonex Nasal Rizatriptan Benzoate Oral Topiramate Oral Ventolin HFA Inhalation ZyrTEC Allergy Oral The source(s) of the original Home Medication information: From last visit - unable to verifiy with patient, already discharged The following Medications were given to the patient in the Emergency Department: None. The following Medications were prescribed to the patient: Ultram 50 mg tablets: take 1-2 orally every 6 hours as needed for pain. Dispense twenty (20). No refills. Substitution is permissible. -- Ebony Causey A.R.N.P.
--- NOTE | 2016-11-29 23:00 | ED DISCHARGE INSTRUCTIONS ---
Patient: DAVE BANUELOS General Instructions [facility] VisitID: [id number] [address] [place] [address] 41y, F Registration Date/Time: 11/29/2016 Single contusion to the right little finger.No hematoma, skin abrasion or right fingernail injury. INSTRUCTIONS Apply ice for 20 minutes four times a day for one days until better. Don't apply ice directly to skin. Elevate affected areas above chest level for one days as needed. Warnings: GENERAL WARNINGS: Return or contact your physician immediately if your condition worsens or changes unexpectedly, if not improving as expected, or if other problems arise. Specifically return if problem worsens. Prescription Medications: Ultram 50 mg tablets: take 1-2 orally every 6 hours as needed for pain. Dispense twenty (20). No refills. Substitution is permissible. Follow-up: Follow up with your doctor in about one week as needed. Call for an appointment. Summary of care provided to patient. Understanding of the discharge instructions verbalized by patient. ADDITIONAL INFORMATION Contusion: Finger You have a CONTUSION of your finger. This causes local pain, swelling and sometimes bruising. There are no broken bones. This injury takes a few days to a few weeks to heal. A finger contusion may be treated with a splint or "abhishek tape" (taping the injured finger to the one next to it for support). Minor contusions may require no additional support. Home Care: 1) Keep your hand elevated to reduce pain and swelling. This is very important during the first 48 hours. 2) Apply an ice pack (ice cubes in a plastic bag, wrapped in a towel) over the injured area for 20 minutes every 1-2 hours the first day. You should continue with ice packs 3-4 times a day for the next two days. Continue the use of ice packs for relief of pain and swelling as needed. 3) If abhishek tape was applied and it becomes wet or dirty, change it. You may replace it with paper, plastic or cloth tape. Cloth tape and paper tapes must be kept dry. Keep the abhishek tape in place for at least one week. 4) You may use acetaminophen (Tylenol) or ibuprofen (Motrin, Advil) to control pain, unless another pain medicine was prescribed. [ NOTE : If you have chronic liver or kidney disease or ever had a stomach ulcer or GI bleeding, talk with your doctor before using these medicines.] Follow Up with your doctor or this facility if your injury does not start to improve within the next THREE days. [NOTE: If X-rays were taken, they will be reviewed by a radiologist. You will be notified of any new findings that may affect your care.] Get Prompt Medical Attention if any of the following occur: -- Pain or swelling increases -- Redness, warmth or drainage -- Hand or fingers becomes cold, blue, numb or tingly Tramadol Hydrochloride Oral tablet What is this medicine? TRAMADOL (TRA ma dole) is a pain reliever. It is used to treat moderate to severe pain in adults. How should I use this medicine? Take this medicine by mouth with a full glass of water. Follow the directions on the prescription label. If the medicine upsets your stomach, take it with food or milk. Do not take more medicine than you are told to take. Talk to your irrigation pump installer regarding the use of this medicine in children. Special care may be needed. What side effects may I notice from receiving this medicine? Side effects that you should report to your doctor or health coronary care unit nurse as soon as possible: allergic reactions like skin rash, itching or hives, swelling of the face, lips, or tongue breathing difficulties, wheezing confusion itching light headedness or fainting spells redness, blistering, peeling or loosening of the skin, including inside the mouth seizures Side effects that usually do not require medical attention (report to your doctor or health coronary care unit nurse if they continue or are bothersome): constipation dizziness drowsiness headache nausea, vomiting What may interact with this medicine? Do not take this medicine with any of the following medications: MAOIs like Carbex, Eldepryl, Marplan, Nardil, and Parnate This medicine may also interact with the following medications: alcohol or medicines that contain alcohol antihistamines benzodiazepines bupropion carbamazepine or oxcarbazepine clozapine cyclobenzaprine digoxin furazolidone linezolid medicines for depression, anxiety, or psychotic disturbances medicines for migraine headache like almotriptan, eletriptan, frovatriptan, naratriptan, rizatriptan, sumatriptan, zolmitriptan medicines for pain like pentazocine, buprenorphine, butorphanol, meperidine, nalbuphine, and propoxyphene medicines for sleep muscle relaxants naltrexone phenobarbital phenothiazines like perphenazine, thioridazine, chlorpromazine, mesoridazine, fluphenazine, prochlorperazine, promazine, and trifluoperazine procarbazine warfarin What if I miss a dose? If you miss a dose, take it as soon as you can. If it is almost time for your next dose, take only that dose. Do not take double or extra doses. Where should I keep my medicine? Keep out of the reach of children. Store at room temperature between 15 and 30 degrees C (59 and 86 degrees F). Keep container tightly closed. Throw away any unused medicine after the expiration date. What should I tell my health care provider before I take this medicine? They need to know if you have any of these conditions: brain tumor depression drug abuse or addiction head injury if you frequently drink alcohol containing drinks kidney disease or trouble passing urine liver disease lung disease, asthma, or breathing problems seizures or epilepsy suicidal thoughts, plans, or attempt; a previous suicide attempt by you or a family member an unusual or allergic reaction to tramadol, codeine, other medicines, foods, dyes, or preservatives or trying to get breast-feeding What should I watch for while using this medicine? Tell your doctor or health coronary care unit nurse if your pain does not go away, if it gets worse, or if you have new or a different type of pain. You may develop tolerance to the medicine. Tolerance means that you will need a higher dose of the medicine for pain relief. Tolerance is normal and is expected if you take this medicine for a long time. Do not suddenly stop taking your medicine because you may develop a severe reaction. Your body becomes used to the medicine. This does NOT mean you are addicted. Addiction is a behavior related to getting and using a drug for a non-medical reason. If you have pain, you have a medical reason to take pain medicine. Your doctor will tell you how much medicine to take. If your doctor wants you to stop the medicine, the dose will be slowly lowered over time to avoid any side effects. You may get drowsy or dizzy. Do not drive, use machinery, or do anything that needs mental alertness until you know how this medicine affects you. Do not stand or sit up quickly, especially if you are an older patient. This reduces the risk of dizzy or fainting spells. Alcohol can increase or decrease the effects of this medicine. Avoid alcoholic drinks. You may have constipation. Try to have a bowel movement at least every 2 to 3 days. If you do not have a bowel movement for 3 days, call your doctor or health coronary care unit nurse. Your mouth may get dry. Chewing sugarless gum or sucking hard candy, and drinking plenty of water may help. Contact your doctor if the problem does not go away or is severe. You have been given the following additional information: Finger Contusion Tramadol Hydrochloride Oral tablet (Electronically signed by Ebony Causey A.R.N.PBryan 11/29/2016 22:59)
--- NOTE | 2016-11-29 23:00 | ED MAR SUMMARY ---
..... Medication Administration Record [facility] [address] [place] [address] Patient: DAVE BANUELOS Visit ID: [id number] 41y, F Weight: 123.8 kg Height/Length: 63 in BMI: 48.4 ALLERGIES: Aspirin, Formaldehyde, Ibuprofen, NSAIDs
--- NOTE | 2016-11-29 23:00 | ED MED RECONCILIATION SUMMARY ---
Patient: DAVE BANUELOS Medication Reconciliation Report [facility] VisitID: [id number] [address] [place] [address] 41y, F Registration Date/Time: 11/29/2016 Weight: 123.8 kg Height/Length: 63 in. BMI: 48.4 ALLERGIES: Aspirin, Formaldehyde, Ibuprofen, NSAIDs The patient's Home Medications are listed below: THE FOLLOWING MEDICATIONS NEED TO BE RECONCILED: Baclofen Oral Benadryl Oral Effexor XR Oral Flovent HFA Inhalation Gabapentin Oral Nasonex Nasal Rizatriptan Benzoate Oral Topiramate Oral Ventolin HFA Inhalation ZyrTEC Allergy Oral The source(s) of the original Home Medication information: From last visit - unable to verifiy with patient, already discharged The following Medications were given to the patient in the Emergency Department: None. The following Medications were prescribed to the patient: Ultram 50 mg tablets: take 1-2 orally every 6 hours as needed for pain. Dispense twenty (20). No refills. Substitution is permissible. -- Ebony Causey A.R.N.P.
--- NOTE | 2016-11-29 23:00 | ED DISCHARGE INSTRUCTIONS ---
Patient: DAVE BANUELOS General Instructions [facility] VisitID: [id number] [address] [place] [address] 41y, F Registration Date/Time: 11/29/2016 Single contusion to the right little finger.No hematoma, skin abrasion or right fingernail injury. INSTRUCTIONS Apply ice for 20 minutes four times a day for one days until better. Don't apply ice directly to skin. Elevate affected areas above chest level for one days as needed. Warnings: GENERAL WARNINGS: Return or contact your physician immediately if your condition worsens or changes unexpectedly, if not improving as expected, or if other problems arise. Specifically return if problem worsens. Prescription Medications: Ultram 50 mg tablets: take 1-2 orally every 6 hours as needed for pain. Dispense twenty (20). No refills. Substitution is permissible. Follow-up: Follow up with your doctor in about one week as needed. Call for an appointment. Summary of care provided to patient. Understanding of the discharge instructions verbalized by patient. ADDITIONAL INFORMATION Contusion: Finger You have a CONTUSION of your finger. This causes local pain, swelling and sometimes bruising. There are no broken bones. This injury takes a few days to a few weeks to heal. A finger contusion may be treated with a splint or "abhishek tape" (taping the injured finger to the one next to it for support). Minor contusions may require no additional support. Home Care: 1) Keep your hand elevated to reduce pain and swelling. This is very important during the first 48 hours. 2) Apply an ice pack (ice cubes in a plastic bag, wrapped in a towel) over the injured area for 20 minutes every 1-2 hours the first day. You should continue with ice packs 3-4 times a day for the next two days. Continue the use of ice packs for relief of pain and swelling as needed. 3) If abhishek tape was applied and it becomes wet or dirty, change it. You may replace it with paper, plastic or cloth tape. Cloth tape and paper tapes must be kept dry. Keep the abhishek tape in place for at least one week. 4) You may use acetaminophen (Tylenol) or ibuprofen (Motrin, Advil) to control pain, unless another pain medicine was prescribed. [ NOTE : If you have chronic liver or kidney disease or ever had a stomach ulcer or GI bleeding, talk with your doctor before using these medicines.] Follow Up with your doctor or this facility if your injury does not start to improve within the next THREE days. [NOTE: If X-rays were taken, they will be reviewed by a radiologist. You will be notified of any new findings that may affect your care.] Get Prompt Medical Attention if any of the following occur: -- Pain or swelling increases -- Redness, warmth or drainage -- Hand or fingers becomes cold, blue, numb or tingly Tramadol Hydrochloride Oral tablet What is this medicine? TRAMADOL (TRA ma dole) is a pain reliever. It is used to treat moderate to severe pain in adults. How should I use this medicine? Take this medicine by mouth with a full glass of water. Follow the directions on the prescription label. If the medicine upsets your stomach, take it with food or milk. Do not take more medicine than you are told to take. Talk to your shrimp packer regarding the use of this medicine in children. Special care may be needed. What side effects may I notice from receiving this medicine? Side effects that you should report to your doctor or health care administrative tech as soon as possible: allergic reactions like skin rash, itching or hives, swelling of the face, lips, or tongue breathing difficulties, wheezing confusion itching light headedness or fainting spells redness, blistering, peeling or loosening of the skin, including inside the mouth seizures Side effects that usually do not require medical attention (report to your doctor or health care administrative tech if they continue or are bothersome): constipation dizziness drowsiness headache nausea, vomiting What may interact with this medicine? Do not take this medicine with any of the following medications: MAOIs like Carbex, Eldepryl, Marplan, Nardil, and Parnate This medicine may also interact with the following medications: alcohol or medicines that contain alcohol antihistamines benzodiazepines bupropion carbamazepine or oxcarbazepine clozapine cyclobenzaprine digoxin furazolidone linezolid medicines for depression, anxiety, or psychotic disturbances medicines for migraine headache like almotriptan, eletriptan, frovatriptan, naratriptan, rizatriptan, sumatriptan, zolmitriptan medicines for pain like pentazocine, buprenorphine, butorphanol, meperidine, nalbuphine, and propoxyphene medicines for sleep muscle relaxants naltrexone phenobarbital phenothiazines like perphenazine, thioridazine, chlorpromazine, mesoridazine, fluphenazine, prochlorperazine, promazine, and trifluoperazine procarbazine warfarin What if I miss a dose? If you miss a dose, take it as soon as you can. If it is almost time for your next dose, take only that dose. Do not take double or extra doses. Where should I keep my medicine? Keep out of the reach of children. Store at room temperature between 15 and 30 degrees C (59 and 86 degrees F). Keep container tightly closed. Throw away any unused medicine after the expiration date. What should I tell my health care provider before I take this medicine? They need to know if you have any of these conditions: brain tumor depression drug abuse or addiction head injury if you frequently drink alcohol containing drinks kidney disease or trouble passing urine liver disease lung disease, asthma, or breathing problems seizures or epilepsy suicidal thoughts, plans, or attempt; a previous suicide attempt by you or a family member an unusual or allergic reaction to tramadol, codeine, other medicines, foods, dyes, or preservatives or trying to get breast-feeding What should I watch for while using this medicine? Tell your doctor or health care administrative tech if your pain does not go away, if it gets worse, or if you have new or a different type of pain. You may develop tolerance to the medicine. Tolerance means that you will need a higher dose of the medicine for pain relief. Tolerance is normal and is expected if you take this medicine for a long time. Do not suddenly stop taking your medicine because you may develop a severe reaction. Your body becomes used to the medicine. This does NOT mean you are addicted. Addiction is a behavior related to getting and using a drug for a non-medical reason. If you have pain, you have a medical reason to take pain medicine. Your doctor will tell you how much medicine to take. If your doctor wants you to stop the medicine, the dose will be slowly lowered over time to avoid any side effects. You may get drowsy or dizzy. Do not drive, use machinery, or do anything that needs mental alertness until you know how this medicine affects you. Do not stand or sit up quickly, especially if you are an older patient. This reduces the risk of dizzy or fainting spells. Alcohol can increase or decrease the effects of this medicine. Avoid alcoholic drinks. You may have constipation. Try to have a bowel movement at least every 2 to 3 days. If you do not have a bowel movement for 3 days, call your doctor or health care administrative tech. Your mouth may get dry. Chewing sugarless gum or sucking hard candy, and drinking plenty of water may help. Contact your doctor if the problem does not go away or is severe. You have been given the following additional information: Finger Contusion Tramadol Hydrochloride Oral tablet (Electronically signed by Ebony Causey A.R.N.PBryan 11/29/2016 22:59)
--- NOTE | 2016-11-29 23:00 | ED MAR SUMMARY ---
..... Medication Administration Record [facility] [address] [place] [address] Patient: DAVE BANUELOS Visit ID: [id number] 41y, F Weight: 123.8 kg Height/Length: 63 in BMI: 48.4 ALLERGIES: Aspirin, Formaldehyde, Ibuprofen, NSAIDs
== END 2016-11-29 19:45 | disposition home or self-care (01) ==
LOC: ED SRH 17:34
DX: S60.051A Contusion of right little finger without damage to nail, initial encounter (principal); Y04.0XXA Assault by unarmed brawl or fight, initial encounter; Y93.9 Activity, unspecified; Y92.009 Unspecified place in unspecified non-institutional (private) residence as the place of occurrence of the external cause; Y99.9 Unspecified external cause status; E11.9 Type 2 diabetes mellitus without complications; F17.210 Nicotine dependence, cigarettes, uncomplicated